=== PATIENT | male | born 1975 | race Hispanic/Latino ===

== ENCOUNTER 2017-07-12 10:36 | Inpatient (IN) | payer SELFPAY ==
[2017-07-12] VITALS (7 sets, daily range): BP systolic 91–159; BP diastolic 51–90
[~2017-07-12] VITALS: Ht 170.2 cm; Wt 70.0 kg
--- NOTE | 2017-07-12 10:47 | NUR ---
ER AWARE OF ACCU CHECK 530
[2017-07-12] MEDS ORDERED: ACYCLOVIR400 MG PO (10:59)
[2017-07-12] MEDS ORDERED: MIRTAZAPINE15 MG PO (10:59)
[2017-07-12] MEDS ORDERED: RISPERIDONE2 MG PO (11:00)
[2017-07-12] MEDS ORDERED: ERYTHROMYCIN O3.5 GM OU (11:01)
[2017-07-12 11:10] LABS: HEMATOCRIT 50.9 % (39.0-50.0); HEMOGLOBIN 16.9 g/dl (14.0-18.0); IMMATURE GRANULOCYTES 0.7 % (0.0-1.0); MEAN CELL VOLUME 88.2 fL CALC (80.0-100.0); MEAN CORPUSCULAR HGB 29.3 pG CALC (26.0-32.0); MEAN CORPUSCULAR HGB CONC 33.2 g/L CALC (32.0-36.0); NEUT# 8.93 thou/uL (1.82-7.42); RED BLOOD COUNT 5.77 mill/uL (4.70-6.10); RED CELL DISTRI WIDTH 12.5 % (11.5-15.5)
--- NOTE | 2017-07-12 11:12 | NUR ---
PT NOW WITH IV ESTABLISHED, BLOOD DRAWN, MEDS PROVIDED ORDERED,
[2017-07-12 11:26] LABS: ALBUMIN 4.6 g/dL (3.2-5.0); ALKALINE PHOSPHATASE 149 u/l (38-126); BILIRUBIN, TOTAL 0.5 mg/dL (0.0-1.4); BUN 20 mg/dL (9-20); BUN/CREATININE RATIO 20 (12-20 (CALC)); CHLORIDE 97 mmol/l (95-108); ETHYL ALCOHOL 0 mg/dl (0-30); GFR > 60 ML/MIN (>=60 (CALC)); GFR FOR AFR.AMER. > 60 ML/MIN (>=60 (CALC)); SGOT/AST 37 u/l (17-59); SGPT/ALT 63 u/l (21-72); SODIUM 131 mmol/l (137-146); TOTAL PROTEIN 8.1 g/dL (6.3-8.2)
[2017-07-12 11:29] LABS: URINE BILIRUBIN - DIPSTICK NEGATIVE (NEGATIVE); URINE BLOOD DIPSTICK MODERATE (NEGATIVE); URINE COLOR YELLOW; URINE GLUCOSE - DIPSTICK >=1000 mg/dL (NEGATIVE); URINE KETONE >=80 mg/dL (NEGATIVE); URINE LEUK ESTERASE NEGATIVE (NEGATIVE); URINE NITRITE - DIPSTICK NEGATIVE (Negative); URINE PROTEIN - DIPSTICK 30 mg/dL (NEG-TRACE); URINE SPECIFIC GRAVITY 1.025; URINE UROBILINOGEN - DIPSTICK 0.2 E.U./dL (0.2)
[2017-07-12 11:30] LABS: URINE CLARITY SL CLOUDY
[2017-07-12 11:31] LABS: URINE EPITHELIAL CELLS FEW EPI/hpf (0-FEW); URINE MUCUS FEW hpf (NONE-FEW)
[2017-07-12 11:32] LABS: BARBITURATES NEGATIVE (NEGATIVE); COCAINE NEGATIVE (NEGATIVE); METHADONE NEGATIVE (NEGATIVE); OXCYCODONE NEGATIVE (NEGATIVE); TETRAHYDROCANNABIONOL NEGATIVE (NEGATIVE); TRICYLIC ANTIDEPRESSANTS NEGATIVE (NEGATIVE)
[2017-07-12 11:32] LABS: ANION GAP 34 (6-22 (CALC)); POTASSIUM 5.2 mmol/l (3.5-5.1)
[2017-07-12 11:33] LABS: CARBON DIOXIDE < 5 mmol/l (22-30)
--- NOTE | 2017-07-12 12:13 | NUR ---
PT RECEIVING MEDS ORDERED, RESTS COMFORTABLY IN THE STRETCHER WITH FRIENDS AT BEDSIDE.
--- NOTE | 2017-07-12 14:02 | NUR ---
PT AWARE OF ADMISSION PROBABILITY, RESTS IN THE STRETCHER IN NO ACUTE DISTRESS.
[2017-07-12 14:43] LABS: BUN 19 mg/dL (9-20); BUN/CREATININE RATIO 22 (12-20 (CALC)); CHLORIDE 105 mmol/l (95-108); CREATININE 0.9 mg/dL (0.7-1.3); GFR > 60 ML/MIN (>=60 (CALC)); GFR FOR AFR.AMER. > 60 ML/MIN (>=60 (CALC)); SODIUM 135 mmol/l (137-146)
[2017-07-12 14:45] LABS: ANION GAP 29 (6-22 (CALC)); POTASSIUM 5.3 mmol/l (3.5-5.1)
[2017-07-12 14:47] LABS: CARBON DIOXIDE 6 mmol/l (22-30)
--- NOTE | 2017-07-12 15:50 | NUR ---
INSULIN DRIP STARTED AT THIS TIME AT 4 UNITS HOURLY. PT RESTS IN THE STRETCHER, NO ACUTE DISTRESS NOTED.
--- NOTE | 2017-07-12 16:20 | NUR ---
INSULIN DRIP TO 3 UNITS HOURLY PER NS 274. PT TAKEN TO ICU WITHOUT INCIDENT, REPORT WAS TO RAFI.
--- NOTE | 2017-07-12 16:30 | NUR ---
PT ADMITTED TO ICU BED 5 VIA STRETCHER, PT STOOD OFF STRETCHER ONTO STANDING SCALE; WEIGHT OBTAINED; TRANSFERRED TO BED WITH STRONG STEADY GAIT, ADMISSION ASSESSMENT COMPLETED WITH SEAN BRAMBILA ACTING TRANSLATER, PT ALERT AND ORIENTED STATES HE HASN'T BEEN FEELING GOOD, WENT TO THE CLINIC 2 DAYS AGO TO BE SEEN FOR EXCESSIVE THIRST AN DURINATION, HE WAS GIVEN MEDICATION FOR COLD SORE AND EYE INFLAMMATION, HE FOLLOWED UP TODAY AND THEY TOLD HIM TO COME TO OUR E.R. RELATED TO ELEVATED BLOOD SUGAR, PT DOES NOT HAVE A PERSONAL HISTORY OF DIABETES BUT STATES HE IS FAMILIAR WITH IT BECAUSE HIS FATHER AND 3 BROTHERS HAVE/HAD IT (FATHER IS ), LUNGS ARE CLEAR; RESPS EVEN AND UNLABORED, VS STABLE AFEBRILE, TELE READING SR RATE IN THE 80-90'S, BP SLIGHTLY ELEVATED PT UNSURE OF HIS "NORMAL B/P" SEE INTERVENTIONS FOR DETAIL. SKIN WARM DRY AND INTACT, BS ACTIVE LAST BM SATURDAY PER PT STATES HE HASN'T BEEN EATING GOOD LAST FEW DAYS BECAUSE HE HASN'T FELT GOOD, ALLMONITORING EQUIPMENT EXPLAINED PRIOR TO APPLICATION, SAFETY MEASURES INTRODUCED, ORIENTED TO ROOM AND UNIT, FREQUENT VS, LABS AND ACCU CHECKS, ALL QUESTIONS ANSWERED, CALL OCHOA WITHIN REACH, WILL CONTINUE TO MONITOR.
--- NOTE | 2017-07-12 17:30 | NUR ---
PT RESTING ACCU CHECK COMPLETED EARLIER AND INSULIN GTT REMAINS UNCHANGED, EDUCATED REGARDING NPO EXCEPT WATER, CALL OCHOA WITHIN REACH
--- NOTE | 2017-07-12 18:00 | NUR ---
VISITOR AT BEDSIDE ASKING QUESTIONS FOR PT, ALL QUESTIONS ANSWERED, CALL OCHOA WITHIN REACH.
[2017-07-12 18:39] LABS: BUN 17 mg/dL (9-20); BUN/CREATININE RATIO 21 (12-20 (CALC)); CHLORIDE 110 mmol/l (95-108); CREATININE 0.8 mg/dL (0.7-1.3); GFR > 60 ML/MIN (>=60 (CALC)); GFR FOR AFR.AMER. > 60 ML/MIN (>=60 (CALC)); POTASSIUM 4.4 mmol/l (3.5-5.1); SODIUM 139 mmol/l (137-146)
[2017-07-12 18:43] LABS: ANION GAP 26 (6-22 (CALC)); CARBON DIOXIDE 7 mmol/l (22-30)
--- NOTE | 2017-07-12 19:00 | NUR ---
awake. family member @ bedside & translates for this travel writer. manager monitoring shows sinus rhythm. #20 rfa insulin gtt infusing @ 2 units/hr, ns infusing @ 20cchr. #20 rac ns c 2 amps bicarb infusing @ 200cchr. remains npo. voids per urinal. fall precautions cont.
--- NOTE | 2017-07-12 22:00 | NUR ---
awake. multi friends @ bedside. denies c/o.
[2017-07-13] VITALS (15 sets, daily range): BP systolic 106–137; BP diastolic 51–82
--- NOTE | 2017-07-13 00:21 | NUR ---
lab here. blood drawn.
[2017-07-13 01:00] LABS: ANION GAP 18 (6-22 (CALC)); BUN 15 mg/dL (9-20); BUN/CREATININE RATIO 22 (12-20 (CALC)); CHLORIDE 108 mmol/l (95-108); CREATININE 0.7 mg/dL (0.7-1.3); GFR > 60 ML/MIN (>=60 (CALC)); GFR FOR AFR.AMER. > 60 ML/MIN (>=60 (CALC)); POTASSIUM 3.7 mmol/l (3.5-5.1); SODIUM 140 mmol/l (137-146)
[2017-07-13 01:01] LABS: CARBON DIOXIDE 18 mmol/l (22-30)
--- NOTE | 2017-07-13 02:00 | NUR ---
awakens easily. denies c/o. sql data analyst shows sinus rhythm.
--- NOTE | 2017-07-13 04:00 | NUR ---
eyes closed. no distress. ivf cont.
--- NOTE | 2017-07-13 06:07 | NUR ---
no change in condition. monitor and storage bin tender shows sinus rhythm. friend @ bedside.
--- NOTE | 2017-07-13 06:13 | NUR ---
lab here. blood drawn.
[2017-07-13 06:43] LABS: ANION GAP 15 (6-22 (CALC)); BUN 14 mg/dL (9-20); BUN/CREATININE RATIO 23 (12-20 (CALC)); CARBON DIOXIDE 22 mmol/l (22-30); CHLORIDE 107 mmol/l (95-108); CREATININE 0.6 mg/dL (0.7-1.3); GFR > 60 ML/MIN (>=60 (CALC)); GFR FOR AFR.AMER. > 60 ML/MIN (>=60 (CALC)); POTASSIUM 3.3 mmol/l (3.5-5.1); SODIUM 141 mmol/l (137-146)
--- NOTE | 2017-07-13 07:20 | NUR ---
PT RESTING IN BED, AM ASSESSMENT COMPLETED SEE INTERVENTIONS, SKIN WARM DRY AND INTACT, ABD SOFT AND BS ACTIVE, SKIN WARM AND DRY, URINAL AT BEDSIDE, FRIEND AT BEDSIDE (SPEAKS BERMUDIAN AND TALKS TO PT IN FRENCH) IVF AND INSULIN GTT CONTINUE, ACCU CHECKS COMPLETED HOURLY PER PROTOCOL, PT STAYIN 120-150'S, ANION GAP CLOSED, DENIES PAIN OR DISCOMFORT, SKIN INTACT WITH NO BREAKDOWN NOTED, SAFETY MEASURES REINFROCED, DIET STARTED AND WILL MONITOR TOLERANCE, CALL OCHOA WITHIN REACH
--- NOTE | 2017-07-13 08:10 | NUR ---
SET UP ASSIST PROVIDED FRO AM MEAL, CALL OCHOA WITHIN REACH, COMFORT MEASURES PROVIDED, WILL CONTINUE TO MONITOR.
--- NOTE | 2017-07-13 08:44 | NUR ---
PT RESTING, OFFERS NO NEW COMPLAINTS, FRIEND REMAINS AT BEDSIDE, CALL OCHOA WITHIN REACH
--- NOTE | 2017-07-13 10:33 | NUR ---
TOLERATED DIET WELL,, INSULIN GTT TITRATED PER PROTOCOL FOR BS, VISITOR REMAIN AT BEDSIDE, PT OFFERS NO NEW COMPLAINTS, CALL OCHOA WITHIN REACH
--- NOTE | 2017-07-13 11:18 | NUR ---
PT REMAINS RESTIG IN BED, OFFERS NO NEW COMPLAITNS, FRIENDS REMAIN AT BEDSIDE, WILL CONTINUE TO MONITOR
--- NOTE | 2017-07-13 12:00 | NUR ---
VISITORS REMAIN AT BEDSIDE, IVF AND INSULIN GTT CONTINUE, PT TOLERATING DIET WELL, DENIES N/V. CALL OCHOA WITHIN REACH
--- NOTE | 2017-07-13 14:00 | NUR ---
[facility]F INFUSING AT PRESICRIBED RATE, CALL OCHOA WITHIN REACH
--- NOTE | 2017-07-13 16:08 | NUR ---
PT RESTING IN BED, REMAINS UNCHANGED OFFERWS NO NEW COMPLAINTS, CALL OCHOA WITHIN REACH, CONTINUES TO TOLERATE DIET, FRIENDS REMAIN AT BEDSIDE
--- NOTE | 2017-07-13 16:47 | NUR ---
IN TO SEE PATIENT, NEW ORDERS REC'D, FRIEND AT BEDSIDE ACTING TROLLEY WORKER.
--- NOTE | 2017-07-13 16:59 | NUR ---
MED SURG CALLED FOR BED ASSIGNMENT, INSULIN GTT OFF AT THIS TIME PER VERBAL ORDER
--- NOTE | 2017-07-13 18:04 | NUR ---
PT TOOK PO METFORMIN AND OTHER PO MEDICATIONS W/O INCIDENT, IVF INFUSING ORDERED, PT AWARE OF PLANNED TRANSFER TO MED SURG, FRIEND REMAIN AT BEDSIDE, WILL CONTINUE TO MONITOR.
--- NOTE | 2017-07-13 20:40 | NUR ---
PT.MEDICATED ORDERS PROVIDE, BS 300 GIVEN 4UN.NOV PER SLIDING SCALE. PT.DENIES ANY PAIN OR OTHER SYMPTOMS AT THIS TIME. FAMILY AT BEDSIDE INTERPRETING FOR PT. IV FLUIDS RUNNING @100. INS.DRIP D.C.'D AT THIS TIME. NO S/S OF DISTRESS. PT.ASSESSED AND PREPPED TO BE TRANSFERRED TO MED/SURG PER PHYS ORDERS.
[2017-07-13 20:44] LABS: INFLUENZA A NONE DETECTED (NONE DETECT); INFLUENZA B NONE DETECTED (NONE DETECT)
--- NOTE | 2017-07-13 20:50 | NUR ---
REPORT GIVEN TO MEAGAN GILMORE OF [facility].
--- NOTE | 2017-07-13 20:55 | NUR ---
RECEIVED PT FROM THE ICU IN STABLE CONDITION. PT SETTLED TO BED. DENIES PAIN OR DISCOMFORT. BED IN LOW POSITION AND CALL LIGHT IN REACH.
--- NOTE | 2017-07-13 20:58 | NUR ---
PT TRANSFERRED OFF UNIT FLOOR VIA WHEELCHAIR ACCOMPANIED BY BERTRAND VICK. PT.APPEARED TO BE IN STABLE CONDITION AT TIME OF TRANSFER.
--- NOTE | 2017-07-14 | NUR ---
PATIENT RESTING QUIETLY WITH EYES CLOSED AND APPEARS TO BE ASLEEP. RESP EVEN AND NON-LABORED. NO APPARENT ACUTE DISTRESS NOTED. WILL CONTINUE TO MONITOR.
--- NOTE | 2017-07-14 04:00 | NUR ---
PATIENT RESTED WEEL DURING THE NIGHT. NO VOICED COMPLAINTS. NO APPARENT ACUTE CHANGES NOTED IN PT'S CONDITION.
[2017-07-14 05:25] VITALS: BP 109/55
[2017-07-14 06:37] LABS: IMMATURE GRANULOCYTES 0.3 % (0.0-1.0); MEAN CELL VOLUME 84.7 fL CALC (80.0-100.0); MEAN CORPUSCULAR HGB 29.9 pG CALC (26.0-32.0); MEAN CORPUSCULAR HGB CONC 35.2 g/L CALC (32.0-36.0); NEUT# 4.31 thou/uL (1.82-7.42); RED BLOOD COUNT 4.52 mill/uL (4.70-6.10); RED CELL DISTRI WIDTH 12.6 % (11.5-15.5)
[2017-07-14 06:38] LABS: HEMATOCRIT 38.3 % (39.0-50.0); HEMOGLOBIN 13.5 g/dl (14.0-18.0)
[2017-07-14 06:56] LABS: ALKALINE PHOSPHATASE 81 u/l (38-126); BILIRUBIN, TOTAL 0.7 mg/dL (0.0-1.4); BUN 9 mg/dL (9-20); BUN/CREATININE RATIO 15 (12-20 (CALC)); CARBON DIOXIDE 19 mmol/l (22-30); CHLORIDE 105 mmol/l (95-108); CREATININE 0.6 mg/dL (0.7-1.3); GFR > 60 ML/MIN (>=60 (CALC)); GFR FOR AFR.AMER. > 60 ML/MIN (>=60 (CALC)); MAGNESIUM 1.8 mg/dL (1.6-2.3); SGOT/AST 40 u/l (17-59); SGPT/ALT 53 u/l (21-72); SODIUM 137 mmol/l (137-146)
[2017-07-14 06:58] LABS: ALBUMIN 2.7 g/dL (3.2-5.0); ANION GAP 17 (6-22 (CALC)); TOTAL PROTEIN 5.1 g/dL (6.3-8.2)
--- NOTE | 2017-07-14 07:14 | NUR ---
REPORT RECEIVED FROM MEAGAN GILMORE. PT SUPINE IN BED. SLEEPING. CALL LIGHT REVIEWED AND IN REACH.
[2017-07-14 08:01] VITALS: BP 108/57
--- NOTE | 2017-07-14 12:07 | NUR ---
PT AMBULATING IN ROOM. DENIES COMPLAINTS.
[2017-07-14 16:13] VITALS: BP 110/69
--- NOTE | 2017-07-14 18:45 | NUR ---
RECEIVED CHANGE OF SHIFT REPORT FROM MEAGAN CHAVEZ. PATIENT ALERT AND ORIENTED. NO VOICED COMPLAINTS AT THIS TIME. PT LYING IN BED WITH VISITORS AT BEDSIDE. NO APPARENT ACUTE DISTRESS NOTED.
--- NOTE | 2017-07-14 19:07 | NUR ---
DR HARRISON IN WITH PATIENT
[2017-07-14 19:28] VITALS: BP 120/71
--- NOTE | 2017-07-15 | NUR ---
PATIENT RESTING QUIETLY WITH EYES CLOSED AND APPEARS TO BE ASLEEP. RESP EVEN AND NONLABORED. NO APPARENT ACUTE DISTRESS NOTED. WILL CONTINUE TO MONITOR.
[2017-07-15 04:20] VITALS: BP 105/62
--- NOTE | 2017-07-15 04:38 | NUR ---
PATIENT SLEPT WELL DURING THE NIGHT. NO VOICED COMPLAINTS. NO APPARENT ACUTE CHANGES NOTED IN PT'S CONDITION.
--- NOTE | 2017-07-15 07:50 | NUR ---
PT IS RELAXING IN BED NO C/O PAIN OR DISTRESS NOTED. IV SITE IS FREE FROM REDNESS OR EDEMA. HR IS REG,PULSES ARE STRONG X4, ABD IS SOFT WITH ACTIVE BS,CONTINUE TO OSBERVE AND MONITOR.
[2017-07-15 09:59] LABS: HEMATOCRIT 37.7 % (39.0-50.0); HEMOGLOBIN 13.4 g/dl (14.0-18.0); MEAN CELL VOLUME 83.4 fL CALC (80.0-100.0); MEAN CORPUSCULAR HGB 29.6 pG CALC (26.0-32.0); MEAN CORPUSCULAR HGB CONC 35.5 g/L CALC (32.0-36.0); RED BLOOD COUNT 4.52 mill/uL (4.70-6.10); RED CELL DISTRI WIDTH 12.5 % (11.5-15.5)
[2017-07-15 10:27] LABS: CHOLESTEROL HDL RATIO 2.6 (<4.4 (CALC)); MAGNESIUM 1.6 mg/dL (1.6-2.3)
[2017-07-15 11:00] VITALS: BP 109/63
--- NOTE | 2017-07-15 12:00 | NUR ---
PT IS RELAXIGN IN BED WITH NO DISTRESS NOTED. IV SITE IS FREE FROM REDNESS OR EDEMA. CONTINUE TO OBSEVE AND MONITOR,
[2017-07-15] MEDS ORDERED: NOVOLIN 70/30 SC (13:06)
[2017-07-15] MEDS ORDERED: GLUCOPHAGE500 MG PO (13:06)
--- NOTE | 2017-07-15 14:00 | NUR ---
PT WAS GIVEN A DEMONSTRATION RE: GIVING AN INJECTION WITH NS AND INTO A LEMON. FAMILY MEMBER IS INTERPRETING PT REDEMONSTATED WELL.
--- NOTE | 2017-07-15 14:40 | NUR ---
PT RECEIVED DISCHARGE INSTRUCTIONS AND VERBALIZED UNDERSTANDING IV SITE WAS DISCONTINUED CATHETER INTACT. NO REDNESS OR EDEMA. FAMILY IN THE ROOM TO INTERPRET CONTINUE TO OBSERVE AND MONITOR.,
--- NOTE | 2017-07-15 14:45 | NUR ---
IV SITES HAVE BEEN DISCONTINEUD CATHETER INTACT. NO REDNESS OR EDEMA. CONTINUE TO OBSERVE AND MONTOR,
== END 2017-07-15 14:56 | disposition home or self-care (01) | DRG 639 ==
LOC: ED 10:36 → ED-I 15:04 → ED 15:20 → MS2 15:21 → ICU 15:21 → MS2 07-13 21:00
PROVIDERS: Emergency Medicine; Nurse Practitioner Family; ADMIT Hospitalist; ATTEND Hospitalist
DX: E11.10 Type 2 diabetes mellitus with ketoacidosis without coma (principal); E87.6 Hypokalemia; F17.210 Nicotine dependence, cigarettes, uncomplicated; F29 Unspecified psychosis not due to a substance or known physiological condition; J02.9 Acute pharyngitis, unspecified; Z83.3 Family history of diabetes mellitus